=== PATIENT | male | born 1985 | race Caucasian/White ===

== ENCOUNTER → 2021-12-11 11:00 | Outpatient (BNVA) | payer OTHER, SELFPAY | PROVIDERS: Visit Provider Internal Medicine | DX: S29.012A Strain of muscle and tendon of back wall of thorax, initial encounter (principal); X50.0XXA Overexertion from strenuous movement or load, initial encounter; W01.0XXA Fall on same level from slipping, tripping and stumbling without subsequent striking against object, initial encounter | CPT/HCPCS: 99202 ==

== ENCOUNTER → 2021-12-12 09:02 | Outpatient (BNVA) | payer OTHER, SELFPAY | PROVIDERS: Visit Provider Internal Medicine | DX: S29.012A Strain of muscle and tendon of back wall of thorax, initial encounter (principal); X58.XXXA Exposure to other specified factors, initial encounter | CPT/HCPCS: 99213 ==

== ENCOUNTER → 2021-12-18 10:33 | Outpatient (BNVA) | payer OTHER, SELFPAY | PROVIDERS: Visit Provider Internal Medicine | DX: S29.012A Strain of muscle and tendon of back wall of thorax, initial encounter (principal); X58.XXXA Exposure to other specified factors, initial encounter | CPT/HCPCS: 99213 ==

== ENCOUNTER → 2021-12-21 11:06 | Outpatient (BNVA) | payer OTHER, SELFPAY | PROVIDERS: Visit Provider Internal Medicine | DX: S29.011A Strain of muscle and tendon of front wall of thorax, initial encounter (principal); X58.XXXA Exposure to other specified factors, initial encounter | CPT/HCPCS: 99213 ==

== ENCOUNTER → 2021-12-28 09:39 | Outpatient (BNVA) | payer OTHER, SELFPAY | PROVIDERS: Visit Provider Internal Medicine | DX: S29.012D Strain of muscle and tendon of back wall of thorax, subsequent encounter (principal); X58.XXXD Exposure to other specified factors, subsequent encounter | CPT/HCPCS: 99213 ==

== ENCOUNTER → 2022-01-08 09:49 | Outpatient (BNVA) | payer OTHER, SELFPAY | PROVIDERS: Visit Provider Internal Medicine | DX: S29.012D Strain of muscle and tendon of back wall of thorax, subsequent encounter (principal); X58.XXXD Exposure to other specified factors, subsequent encounter | CPT/HCPCS: 99213 ==

== ENCOUNTER → 2022-01-16 10:17 | Outpatient (BNVA) | payer OTHER, SELFPAY | PROVIDERS: Visit Provider Internal Medicine | DX: S29.012D Strain of muscle and tendon of back wall of thorax, subsequent encounter (principal); X58.XXXD Exposure to other specified factors, subsequent encounter | CPT/HCPCS: 99213 ==

== ENCOUNTER 2023-09-26 10:22 | Outpatient (AMB) | payer SELFPAY ==
--- NOTE | 2023-09-26 10:34 | A.OFFVIS_ITS ---
Intake Vital Signs 09/26/23 10:41 Height 6 ft 2 in Weight 350 lb BMI 44.9 Intake Visit Reasons: [employer]-Left ankle pain Intake Note: Collins 38 yr old 38 yr old male presents today for his left ankle pain . Hx of bone spur removal in 2008. States his pain started 6-7 months ago and has worse. States he has swelling and soreness. Limits his walking. Denies numbness, tingling or recent injury. States he was told he has a plantar spur by his PCP Dr. Marcia Martin. Allergies Penicillins Allergy (Severe, Verified 09/26/23 10:41) Nausea diltiazem Allergy (Severe, Uncoded 09/26/23 10:41) feels high HPI HPI Comments History of Present Illness Details Here with . Left ankle bone spur removed at age 25, by Dr. Cummings. No issues since. 6 months ago, no incident causing it. Work entails heavy lifiting, on wood and concrete floor. Noted swelling on ankle, lateral worse than medial, on/off, had to change shoe sizes. No numbness. Burning and pain on lateral ankle. Can darleen siflexion. Still works, stands, with pain. Treatment done so far: NSAIDs lamin wrap 2-3 weeks only ice bucket [facility] Social History (Updated 09/26/23 @ 10:41 by Glory Obando [facility] Current occupational status: employed Current occupation: [employer]/ rt hand Review of Systems Const All systems reviewed & are unremarkable except as noted in HPI and below Physical Exam Vital Signs: BMI result Body Mass Index 44.9 Constitutional: Patient appears to be in no acute distress, well nourished and well developed. MSK: Tender around left lateral malleolus. Noted slightly swollen and warm on that area, but no redness. No tenderness on medial malleolus, Achillis tendon, plantar fascia. No ankle instability noted. Able to dorsiflex and plantar flex, stand on heel or toe. Deferred standing on 1 foot. Strength is 5/5 in all muscle groups tested. No increased tone noted. Neurological: Neurologic examination of the upper and lower extremities was nonfocal with intact sensation, muscle stretch reflexes and without focal motor deficits . Babinski was down going bilaterally. Clonus was negative. Gait is antalgic without loss of balance. Results Reviewed Results Reviewed: I reviewed records from the following: PCP from [facility] Assessment & Plan Assessment & Plan (1) Sprain of lateral ligament of ankle joint: Code(s): S93.409A - Sprain of unspecified ligament of unspecified ankle, initial encounter Plan Suspect he sustained left lateral ankle sprain which has not improved/resolved since 6 months ago. I do not see ankle instability fortunately. However he is unable to miss work and he does not have paid sick benefits. He has continued to work despite pain. He also cannot wear a walking boot at work due to safety hazard. Discussed that first line of treatment for ankle sprain is rest, elevate and ice. Since he cannot rest and elevate and miss work, and cannot wear a boot, we compromised that he would try an aircast brace under his shoe. He would elevate foot during rest breaks and when at home. He will continue to ice when at home. We will reevalutae in 2-3 weeks, if not any better, then he will recons ider getting FMLA and using the boot. We talked about wearing better shoes at work, one with more stability. We will obtain official xray results from [facility]. Assessment and plan discussed with patient, and patient was agreeable. All questions were answered thoroughly. Total of 45 minutes spent today including chart review, results review, history taking, physical examination, discussion of assessment and plan, and coordination of care. Tiffany Cr MD, [place] Board Certified, [place] [employer] and [employer] (ABPMR) Board Certified, [place] [employer] (ABEM) Coding Level of Care Code New Pt Level 4 (39066) Diagnoses Sprain of lateral ligament of ankle joint S93.409A
[2023-09-26 10:41] VITALS: BMI 44.9
== END 2023-09-26 11:25 | disposition home or self-care (01) ==
PROVIDERS: Visit Provider Physical Medicine & Rehabilitation
DX: S93.409A Sprain of unspecified ligament of unspecified ankle, initial encounter (principal)
CPT/HCPCS: 99204

== ENCOUNTER → 2023-09-26 10:22 | Outpatient (BNVA) | payer SELFPAY | PROVIDERS: Visit Provider Physical Medicine & Rehabilitation | DX: S93.402A Sprain of unspecified ligament of left ankle, initial encounter (principal) | CPT/HCPCS: 99202 ==